=== PATIENT | male | born 1975 | race Caucasian/White ===

== ENCOUNTER 2024-12-24 15:44 | Emergency (ER) | payer MEDICARE, SELFPAY ==
[2024-12-24 16:02] VITALS: BP 140/88; PULSE 66; RESP 17; TEMP 36.3; O2SAT 94
[2024-12-24 16:18] VITALS: RESP 18
[2024-12-24 16:20] LABS: Basophils % 0.2 %; Eosinophils # 0.1 10^3/uL (0.0-0.8); Eosinophils % 0.9 %; Hematocrit 46.7 % (37-53); Lymphocytes % 34.6 %; Mean Corpuscular HGB Conc 33.2 g/dL (30-55); Mean Corpuscular Hemoglobin 31.5 pg (27-33); Mean Corpuscular Volume 94.9 fl (82-101); Mean Platelet Volume 8.9 fL (7.4-10.4); Monocytes # 0.7 10^3/uL (0.2-0.9); Monocytes % 7.6 %; Neutrophils # 4.94 10^3/uL (1.8-7.7); Neutrophils % 56.2 %; Nucleated Red Blood Cells % 0 %; Platelet Count 369 10^3/cmm (157-399); Red Blood Count 4.92 10^6/uL (3.85-5.65); White Blood Count 8.79 10^3/uL (3.29-11.43)
--- NOTE | 2024-12-24 16:39 | ED_ITS ---
HPI - Abdominal Pain 2 General: Chief Complaint: Abdominal Pain Stated Complaint: abd pain Time Seen by Provider: 12/24/24 16:14 History of Present Illness: 49-year-old male presents emergency room with parents he has a cognitive disability he is indicating some abdominal pain in the right lower quadrant vomited x 2. No other fever sweats chills no hematemesis coffee-ground emesis no previous abdominal surgeries Associated Symptoms: Reports vomiting; Denies chills, coffee ground emesis, fever(s) and hematemesis Related Data Previous Rx's ?Medication ?Instructions ?Recorded albuterol sulfate 90 mcg/actuation 2 puff inhalation Q 6H PRN 10/10/24 aerosol inhaler shortness of breath or wheez ing #8.5 grams inhalational spacing device #1 ea 10/10/24 (Aerochamber MV spacer) prednisone 20 mg tablet 20 mg PO DAILY #5 tabs 10/10 pantoprazole 40 mg tablet,delayed 40 mg PO DAILY #30 t abs 12/24/24 release (Protonix) Allergies Allergy/AdvReac Type Severity Reaction Status Date / Time No Known Allergies Allergy Verified 10/10/24 15:05 Review of Systems 2 Const: Denies: fever(s) or chills Card: Denies: chest pain Resp: Denies: dyspnea GI: Reports: abdominal pain and vomiting; Denies: hematemesis or coffee ground emesis Skin/Breast: Denies: rash PFSH ED 2 PFSH: Medical History Cerebral palsy Surgical History History of oral surgery Salivary gland surgery to reduce drooling ~1985 Family History Father Hypertension Social History Smoking and tobacco/nicotine status: never used tobacco/nicotine Physical Exam 2 Const: GENERAL APPEARANCE: cooperative ORIENTATION/CONSCIOUSNESS: Yes awake HENMT: COMMON NORMALS: normocephalic, atraumatic and hearing grossly normal bilaterally HEAD & SCALP: normocephalic and atraumatic Resp: COMMON NORMALS: normal respiratory effort, No retractions, No use of accessory muscles and clear to auscultation bilaterally AUSCULTATION: clear to auscultation bilaterally Cardio: COMMON NORMALS: regular rate, regular rhythm and No murmurs present (Cardio) RATE: regular rate RHYTHM: regular rhythm GI: COMMON NORMALS: No hepatosplenomegaly present AUSCULTATION: Yes normoactive bowel sounds PALPATION: Yes Tenderness to palpation present (GI), No Guarding due to palpation present (GI) and Yes No hepatosplenomegaly present Extremity: COMMON NORMALS: normal to inspection, capillary refill normal, no clubbing, cyanosis or edema, no calf tenderness and no pedal edema Skin: COMMON NORMALS: no rashes or lesions noted GENERAL SKIN EXAM: no rashes or lesions noted Course 2 Vital Signs: Vital signs: Vital Signs Temperature 97.3 F L 12/24/24 16:02 Pulse Rate 89 12/24/24 19:08 Respiratory Rate 16 12/24/24 19:08 Blood Pressure 124/89 12/24/24 19:08 Pulse Oximetry 97 12/24/24 19:08 Oxygen Delivery Me thod Room Air 12/24/24 16:02 MDM - Abdominal Pain Medical Decision Making CT shows large hiatal hernia there is no evidence of any strangulation or compromise this time white count is normal. He was mildly hypernatremic is given IV fluids will discharge home started on Protonix and follow-up with primary care doctor referral for further evaluation but is worsening symptoms return Lab Data 12/24/24 14:10 12/24/24 14:10 Labs/Radiology: Radiology Impressions Abdomen/Pelvis CT 12/24/24 16:40 IMPRESSION: 1. Large type IV paraesophageal hernia containing at least half of the stomach as well as portions of the pancreas and associated vasculature. No definite inflammatory changes. 2. Areas of mild gastric wall thickening could represent mild gastritis. 3. Colonic diverticulosis without diverticulitis. Laboratory Results WBC 8.79 10^3/uL (3.29-11.43) 12/24/24 14:10 RBC 4.92 10^6/uL (3.85-5.65) 12/24/24 14:10 Hgb 15.50 g/dL (11.27-16.99) 12/24/24 14:10 Hct 46.7 % (37-53) 12/24/24 14:10 MCV 94.9 fl (82-101) 12/24/24 14:10 MCH 31.5 pg (27-33) 12/24/24 14:10 MCHC 33.2 g/dL (30-55) 12/24/24 14:10 RDW 13.0 % (12.1-15.1) 12/24/24 14:10 Plt Count 369 10^3/cmm (157-399) 12/24/24 14:10 MPV 8.9 fL (7.4-10.4) 12/24/24 14:10 Neut % (Auto) 56.2 % 12/24/24 14:10 Lymph % (Auto) 34.6 % 12/24/24 14:10 [place] % (Auto) 7.6 % 12/24/24 14:10 Eos % (Auto) 0.9 % 12/24/24 14:10 Baso % (Auto) 0.2 % 12/24/24 14:10 Neut # (Auto) 4.94 10^3/uL (1.8-7.7) 12/24/24 14:10 Lymph # (Auto) 3.0 10^3/uL (0.8-4.8) 12/24/24 14:10 [place] # (Auto) 0.7 10^3/uL (0.2-0.9) 12/24/24 14:10 Eos # (Auto) 0.1 10^3/uL (0.0-0.8) 12/24/24 14:10 Baso # (Auto) 0.0 10^3/uL (0.0-0.1) 12/24/24 14:10 Nucleated RBC % (auto) 0 % 12/24/24 14:10 Nucleated RBCs # 0.0 /100WBC 12/24/24 14:10 Sodium 148 mmol/L (136-145) H 12/24/24 14:10 Potassium 4.6 mmol/L (3.5-5.1) 12/24/24 14:10 Chloride 107 mmol/L (98-107) 12/24/24 14:10 Carbon Dioxide 27 mmol/L (22-29) 12/24/24 14:10 Anion Gap 18.6 (5-19) 12/24/24 14:10 BUN 22 mg/dL (6-20) H 12/24/24 14:10 Creatinine 1.1 mg/dL (0.7-1.2) 12/24/24 14:10 GFR Calculation 71.8 mL/min (90-130) L 12/24/24 14:10 Glucose 141 mg/dL (65-115) H 12/24/24 14:10 Calculated Osmolality 312 mOsm/kg (285-295) H 12/24/24 14:10 Calcium 9.5 mg/dL (8.5-10.5) 12/24/24 14:10 Total Bilirubin 0.5 mg/dL (0.15-1.2) 12/24/24 14:10 AST 69 U/L (0-40) H 12/24/24 14:10 ALT 48 U/L (0-41) H 12/24/24 14:10 Alkaline Phosphatase 107 U/L (40-130) 12/24/24 14:10 Total Protein 7.7 g/dL (6.6-8.7) 12/24/24 14:10 Albumin 4.5 g/dL (3.5-5.2) 12/24/24 14:10 Globulin 3.2 g/dL (1.3-4.6) 12/24/24 14:10 Lipase 46 U/L (13-60) 12/24/24 14:10 All radiology interpretation(s) finalized by discharge Discharge Plan Discharge Patient Disposition: Home Clinical Impression: Abdominal pain, Hernia, hiatal Condition: Stable Prescriptions: New pantoprazole [Protonix] 40 mg tablet,delayed release (DR/EC) 40 mg PO DAILY Qty: 30 0RF No Action prednisone 20 mg tablet 20 mg PO DAILY Qty: 5 0RF albuterol sulfate 90 mcg/actuation HFA aerosol inhaler 2 puff inhalation Q6H PRN (Reason: shortness of breath or wheezing) Qty: 8.5 6RF (DME) Aerochamber MV Spacer See Rx Instructions .ROUTE .MEDSUPPLY Qty: 1 0RF Rx Instructions: As directed Discharge Orders: Discharge ED (Routine); Ordered 12/24/24 Ordered By: Cristopher Traore Referrals: Manny Miles MD [Primary Care Provider, Family Practice] Discharge Activity: Resume usual activity Patient Instructions: Hiatal Hernia (ED), Diet for Stomach Ulcers and Gastritis (ED), Abdominal Pain (ED), Opioid Safety, Pain Management Activity Restrictions/Additional Instructions: Thank you for choosing [facility] for your healthcare needs today. It is very important that you follow up as instructed or that you return to the Emergency Department should you have concerns or if your condition changes or worsens in any way. You are seen in the emergency room with abdominal pain. CT shows hiatal hernia but no acute pathology your laboratory test did not show significant abnormality you are given IV fluids before discharge recommend you follow-up with your primary care doctor. There is a slight increase in your liver functions this may be from a gastroenteritis that should be followed up with your primary care doctor as well. Started on pantoprazole for the hiatal hernia and reflux your primary care doctor can advise if further treatment is needed. Print Language: Montenegrin Coding Level of Care Code ED Social Director for Maxi Adam
--- NOTE | 2024-12-24 16:40 | CTR_ITS ---
PROCEDURE INFORMATION: Exam: CT Abdomen And Pelvis With Contrast Exam date and time: 12/24/2024 5:23 PM Age: 49 years old Clinical indication: Vomiting; Abdominal pain; Generalized; Additional info: Abd pain TECHNIQUE: Imaging protocol: Computed tomography of the abdomen and pelvis with contrast. Radiation optimization: All CT scans at this facility use at least one of these dose optimization techniques: automated exposure control; mA and/or kV adjustment per patient size (includes targeted exams where dose is matched to clinical indication); or iterative reconstruction. Contrast material: OMNIPAQUE 350; Contrast volume: 75 ml; Contrast route: INTRAVENOUS (IV); COMPARISON: No relevant prior studies available. RADIATION DOSE METRICS: Total DLP (mGy-cm): 610.56 FINDINGS: Limitations: Suboptimal image quality due to motion artifact. Lungs: Bibasilar atelectasis. Liver: Subcentimeter hypodensity in the lateral segment left hepatic lobe is too small to characterize but likely represents a cyst. Gallbladder and biliary ducts: Dilated common bile duct measuring up to 9 mm with smooth tapering distally. Pancreas: Large type IV paraesophageal hernia containing at least half of the stomach as well as portions of the pancreas and associated vasculature. No pancreatic ductal dilatation. Spleen: Normal. No splenomegaly. Adrenal glands: Normal. No mass. Kidneys and ureters: Normal. No hydronephrosis. Stomach and bowel: Similar colonic diverticula are seen along the ascending and proximal transverse colon. No evidence of diverticulitis. Areas of mild gastric wall thickening are seen. Heterogeneous attenuation within the herniated portions of the stomach may be from ingested material. Appendix: No evidence of appendicitis. Intraperitoneal space: Unremarkable. No free air. No significant fluid collection. Vasculature: Unremarkable. No abdominal aortic aneurysm. Lymph nodes: Unremarkable. No enlarged lymph nodes. Urinary bladder: Unremarkable as visualized. Reproductive: Unremarkable as visualized. Bones/joints: Unremarkable. No acute fracture. Soft tissues: Unremarkable. CT/CT abdomen pelvis w con* [id number] IMPRESSION: 1. Large type IV paraesophageal hernia containing at least half of the stomach as well as portions of the pancreas and associated vasculature. No definite inflammatory changes. 2. Areas of mild gastric wall thickening could represent mild gastritis. 3. Colonic diverticulosis without diverticulitis.
[2024-12-24 16:45] LABS: Anion Gap 18.6 (5-19); Blood Urea Nitrogen 22 mg/dL (6-20); Calcium 9.5 mg/dL (8.5-10.5); Carbon Dioxide 27 mmol/L (22-29); Chloride 107 mmol/L (98-107); Glomerular Filtration Rate 71.8 mL/min (90-130); Lipase 46 U/L (13-60); Potassium 4.6 mmol/L (3.5-5.1); Sodium 148 mmol/L (136-145); Total Bilirubin 0.5 mg/dL (0.15-1.2); Total Protein 7.7 g/dL (6.6-8.7)
[2024-12-24 17:02] LABS: Alanine Aminotransferase 48 U/L (0-41); Albumin Level 4.5 g/dL (3.5-5.2); Alkaline Phosphatase 107 U/L (40-130); Aspartate Amino Transferase 69 U/L (0-40); Globulin 3.2 g/dL (1.3-4.6); Glucose 141 mg/dL (65-115); Osmolality Calculated 312 mOsm/kg (285-295)
[2024-12-24] MEDS: iohexol 350 mg/mL 500 mL Btl (per mL) IV (17:24)
[2024-12-24] MEDS: sodium chloride 0.9% 1,000 ML 999 ML IV (18:12)
[2024-12-24 19:08] VITALS: BP 124/89; PULSE 89; RESP 16; O2SAT 97
== END 2024-12-24 19:09 | disposition home or self-care (01) ==
PROVIDERS: Emergency Medicine; Emergency Provider Family Medicine; PCP Family Medicine
DX: R10.9 Unspecified abdominal pain (principal); K44.9 Diaphragmatic hernia without obstruction or gangrene
CPT/HCPCS: 36415; 74177; 80053; 83690; 85025; 96360; 99285; J7030